=== PATIENT | female | born 1975 | race Caucasian/White ===

== ENCOUNTER → 2017-04-21 | Outpatient (CLI) | payer BC ==
[2006-06-06 15:40] VITALS: TEMP 98
[~2017-04-21] MED LIST: KARIVA1 TAB PO; TOPAMAX25 M1 PO
== END ==
LOC: MC.RAD 07:00
DX: Z12.31 Encounter for screening mammogram for malignant neoplasm of breast (principal); Z98.890 Other specified postprocedural states

== ENCOUNTER → 2017-04-26 | Outpatient (CLI) | payer BC ==
[2006-06-06 15:40] VITALS: TEMP 98
== END ==
LOC: MC.RAD 07:30
DX: N63 Unspecified lump in breast (principal)

== ENCOUNTER → 2017-04-27 | Outpatient (CLI) | payer BC ==
[2006-06-06 15:40] VITALS: TEMP 98
== END ==
LOC: MC.RAD 12:25
DX: N63 Unspecified lump in breast (principal)

== ENCOUNTER → 2018-05-31 | Outpatient (CLI) | payer BC ==
[2006-06-06 15:40] VITALS: TEMP 98
== END ==
LOC: MC.RAD 06:59
DX: Z12.31 Encounter for screening mammogram for malignant neoplasm of breast (principal)

== ENCOUNTER → 2019-05-31 | Outpatient (CLI) | payer BC ==
[2006-06-06 15:40] VITALS: TEMP 98
== END ==
LOC: MC.RAD 07:07
DX: Z12.31 Encounter for screening mammogram for malignant neoplasm of breast (principal)

== ENCOUNTER → 2020-07-29 | Outpatient (CLI) | payer BC ==
[2006-06-06 15:40] VITALS: TEMP 98
== END ==
LOC: MC.RAD 07-15 07:15
DX: N63.10 Unspecified lump in the right breast, unspecified quadrant (principal)

== ENCOUNTER → 2020-08-07 | Outpatient (CLI) | payer BC ==
[2006-06-06 15:40] VITALS: TEMP 98
== END ==
LOC: MC.RAD 07:54
DX: N63.20 Unspecified lump in the left breast, unspecified quadrant (principal)

== ENCOUNTER → 2020-08-12 | Outpatient (CLI) | payer BC ==
[2006-06-06 15:40] VITALS: TEMP 98
== END ==
LOC: MC.RAD 06:54
DX: N63.24 Unspecified lump in the left breast, lower inner quadrant (principal)

== ENCOUNTER → 2021-08-13 | Outpatient (CLI) | payer BC ==
[2006-06-06 15:40] VITALS: TEMP 98
== END ==
LOC: MC.RAD 06:54
DX: Z12.31 Encounter for screening mammogram for malignant neoplasm of breast (principal)

== ENCOUNTER → 2023-11-23 | Outpatient (CLI) | payer BC ==
[2006-06-06 15:40] VITALS: BP 118/66; PULSE 70; TEMP 98
== END ==
LOC: MC.RAD 06:55
DX: Z12.31 Encounter for screening mammogram for malignant neoplasm of breast (principal)

== ENCOUNTER 2024-05-03 05:46 | Day surgery (SDC) | payer BC ==
[~2024-05-03] VITALS: Ht 154.9 cm; Wt 83.9 kg
[~2024-05-03 05:46] MED LIST changes: +LR 1,000 ML IV SCH; +Ondansetron 4 MG/2 ML VIAL IV PRN
[2024-05-03] MEDS ORDERED: PEPCID40 MG PO (06:03)
[2024-05-03] MEDS ORDERED: ZOLOFT 50MG50 MG PO (06:03)
[2024-05-03] MEDS ORDERED: FASTIN30 MG PO (06:14)
[2024-05-03 06:31] VITALS: BP 103/71; PULSE 87; TEMP 97.2
[2024-05-03] MEDS ORDERED: Lidocaine PF 2% (20 MG/ML) 5 ML VIAL ONE (07:12)
[2024-05-03 07:40] VITALS: BP 103/56; PULSE 73; TEMP 97.2
[2024-05-03 07:55] VITALS: BP 110/51; PULSE 73
--- NOTE | 2024-05-03 08:12 | NUR ---
Pt returns from procedure via cart at 0740. Ambulates to recliner chair with assist of 2, feet elevated. at bedside. VSS, see flowsheet. IV fluids infusing through right hand IV site without issue. Muffin and diet sprite given. 0754- Discharge instructions reviewed with patient and her , questions answered. 0757- IV site removed, pt up and dressed. 0804- Dr. Brooks in to talk with patient. 0810- Pt down to husbands car via w/c.
== END 2024-05-03 08:10 | disposition home or self-care (01) ==
LOC: SDCO 05:46
DX: K21.9 Gastro-esophageal reflux disease without esophagitis (principal); Z12.11 Encounter for screening for malignant neoplasm of colon
CPT/HCPCS: J2704; J7120